=== PATIENT | male | born 1995 | race Caucasian/White ===

== ENCOUNTER 2017-10-18 02:38 | Emergency (ER) | payer OTHER ==
--- NOTE | 2017-10-18 03:06 | ERPHSYRPT ---
- History of Present Illness Time Seen by Provider: 10/18/17 03:01 Source: patient Exam Limitations: no limitations Physician History: Patient is a 22-year-old male who complains of a sudden onset of left forearm pain that began 45 minutes ago and lasted just a few seconds. Immediately after he rubbed his left forearm and the pain went away, he had pain high in his right ear. The right ear pain lasted for a few seconds and has resolved. He then had some minor epigastric pain that lasted briefly along with nausea. This has also resolved. He then felt like his head was heavy so he laid it back on a pillow. He felt dizzy like the room was spinning. His breathing became heavy and difficult. The difficulty in breathing lasted only a few seconds and resolved. On the way to the ER, he had difficulty speaking and had to right when he was wanting to say on a piece of paper. This difficulty has also resolved after lasting only a few seconds. He currently has no complaints at all. He sometimes takes trazodone as a sleep aid. He took trazodone last night but not tonight. Timing/Duration: hour(s) (1), intermittent, resolved prior to arrival, sudden Severity: mild Associated Symptoms: nausea, shortness of breath, headaches Allergies/Adverse Reactions: No Known Drug Allergies Allergy (Verified 10/18/17 03:04) Home Medications: Trazodone HCl 50 mg [Desyrel 50 mg] 50 mg PO HS PRN PRN 10/18/17 [History] Hx Tetanus, Diphtheria Vaccination/Date Given: Yes Hx Influenza Vaccination/Date Given: No Hx Pneumococcal Vaccination/Date Given: No - Review of Systems Constitutional: No Fever, No Chills Eyes: No Symptoms Ears, Nose, & Throat: No Symptoms Respiratory: Dyspnea Cardiac: No Chest Pain, No Edema, No Syncope Abdominal/Gastrointestinal: Abdominal Pain, Nausea Genitourinary Symptoms: No Dysuria Musculoskeletal: No Back Pain, No Neck Pain Skin: No Rash Neurological: Dizziness, Headache Psychological: No Symptoms Endocrine: No Symptoms Hematologic/Lymphatic: No Symptoms Immunological/Allergic: No Symptoms All Other Systems: Reviewed and Negative - Past Medical History Pertinent Past Medical History: Yes Neurological History: No Pertinent History ENT History: No Pertinent History Cardiac History: No Pertinent History Respiratory History: No Pertinent History Endocrine Medical History: No Pertinent History Musculoskeletal History: Other (recurrent ingrown toenail right great toe) GI Medical History: No Pertinent History History: No Pertinent History Psycho-Social History: No Pertinent History Male Reproductive Disorders: No Pertinent History Other Medical History: PT STATES LEFT SIDE OF BRAIN DOES NOT WORK - Past Surgical History Past Surgical History: No Musculoskeletal: Other (excision and removal right great toenail) - Social History Smoking Status: Never smoker Exposure to second hand smoke: Yes Alcohol Use: None Drug Use: none Patient Lives Alone: No Significant Family History: no pertinent family hx - Nursing Vital Signs Nursing Vital Signs: Initial Vital Signs Temperature 98.9 F 10/18/17 02:49 Pulse Rate 64 10/18/17 02:49 Respiratory Rate 16 10/18/17 02:49 Blood Pressure 114/69 10/18/17 02:49 O2 Sat by Pulse Oximetry 99 10/18/17 02:49 Pain Scale Pain Intensity 0 - Physical Exam General Appearance: no apparent distress, alert Eye Exam: PERRL/EOMI, eyes nml inspection, No photophobia Ears, Nose, Throat Exam: normal ENT inspection, TMs normal, pharynx normal, moist mucous membranes Neck Exam: normal inspection, non-tender, supple, full range of motion Respiratory Exam: normal breath sounds, lungs clear, No respiratory distress Cardiovascular Exam: regular rate/rhythm, normal heart sounds, normal peripheral pulses Gastrointestinal/Abdomen Exam: soft, normal bowel sounds, No tenderness, No mass Rectal Exam: not done Back Exam: normal inspection, normal range of motion, No CVA tenderness, No vertebral tenderness Extremity Exam: normal inspection, normal range of motion, pelvis stable Neurologic Exam: alert, oriented x 3, cooperative, 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, normal mood/affect, nml cerebellar function, nml station & gait, sensation nml, No motor deficits, No sensory deficit, No motor weakness, No facial droop, No slurred speech, No aphasia, No dysarthria, No abnormal cerebellar tests, No abnormal 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 machine 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 II-XII Skin Exam: normal color, warm, dry, No rash Lymphatic Exam: No adenopathy SpO2 Interpretation: normal - Course EKG Interpreted by Me: RATE, Sinus Rhythm, NORMAL AXIS, NORMAL INTERVALS, NORMAL QRS, NORMAL ST-T - Radiology Exams Chest X-ray Interpretation: Interpreted by me, Negative Ordered Tests: Active Orders 24 hr Category Date Time Status EKG-ER Only STAT Care 10/18/17 03:08 Active CHEST 2 VIEWS (PA AND LAT) Stat Exams 10/18/17 03:09 Taken CBC W DIFF Stat Lab 10/18/17 03:25 Completed CMP Stat Lab 10/18/17 04:00 Completed TROPONIN Q3H Lab 10/18/17 04:00 Completed TROPONIN Q3H Lab 10/18/17 06:15 Ordered TROPONIN Q3H Lab 10/18/17 09:15 Ordered TROPONIN Q3H Lab 10/18/17 12:15 Ordered TROPONIN Q3H Lab 10/18/17 15:15 Ordered UA W/RFX UR CULTURE Stat Lab 10/18/17 03:08 Uncollected Urine Triage Profile Stat Lab 10/18/17 03:08 Uncollected Medication Summary Discontinued Medications Generic Name Dose Route Start Last Admin Trade Name Freq PRN Reason Stop Dose Admin Sodium Chloride 1,000 mls @ 999 mls/hr 10/18/17 03:08 10/18/17 03:48 Sodium Chloride 0.9% 1000 Ml IV 10/18/17 04:08 999 mls/hr .Q1H1M STA Administration Sodium Chloride Confirm 10/18/17 03:43 Sodium Chloride 0.9% 1000 Ml Administered 10/18/17 03:44 Dose 1,000 mls @ ud .ROUTE .STK-MED ONE Ondansetron HCl 4 mg 10/18/17 03:08 10/18/17 03:48 Zofran 4 Mg/2 Ml Vial IV 10/18/17 03:09 4 mg STAT ONE Administration Ondansetron HCl Confirm 10/18/17 03:43 Zofran 4 Mg/2 Ml Vial Administered 10/18/17 03:44 Dose 4 mg .ROUTE .STK-MED ONE Lab/Rad Data: Laboratory Result Diagrams 10/18/17 03:25 10/18/17 04:00 Laboratory Results 10/18/17 10/18/17 10/18/17 Range/Units 04:00 04:00 03:25 WBC 9.3 (4.0-10.5) K/mm3 RBC 5.65 H (4.1-5.6) M/mm3 Hgb 16.9 (12.5-18.0) gm/dl Hct 50.1 H (42-50) % MCV 88.7 (78-100) fl MCH 29.9 (26-32) pg MCHC 33.7 (32-36) g/dl RDW 12.9 (11.5-14.0) % Plt Count 233 (150-450) K/mm3 MPV 10.2 H (6-9.5) fl Gran % 64.7 (36.0-66.0) % Eos # (Auto) 0.18 (0-0.5) Absolute Lymphs (auto) 2.43 (1.0-4.6) Absolute Monos (auto) 0.66 (0.0-1.3) Lymphocytes % 26.0 (24.0-44.0) % Monocytes % 7.1 (0.0-12.0) % Eosinophils % 1.9 (0.00-5.0) % Basophils % 0.3 (0.0-0.4) % Absolute Granulocytes 6.03 (1.4-6.9) Basophils # 0.03 (0-0.4) Sodium 143 (137-145) mmol/L Potassium 3.6 (3.5-5.1) mmol/L Chloride 104 (98-107) mmol/L Carbon Dioxide 28 (22-30) mmol/L Anion Gap 15.1 H (5-15) MEQ/L BUN 8 L (9-20) mg/dL Creatinine 0.96 (0.66-1.25) mg/dL Estimated GFR > 60.0 ML/MIN Glucose 95 (74-106) mg/dL Calcium 9.5 (8.4-10.2) mg/dL Total Bilirubin 0.40 (0.2-1.3) mg/dL AST 20 (17-59) U/L ALT 24 (0-50) U/L Alkaline Phosphatase 90 (38-126) U/L Troponin I < 0.012 (0.000-0.034) ng/mL Serum Total Protein 7.7 (6.3-8.2) g/dL Albumin 4.5 (3.5-5.0) g/dL - Progress Progress: unchanged Counseled pt/family regarding: lab results, diagnosis, rad results - Departure Time of Disposition: 04:28 Departure Disposition: Home Clinical Impression: Dizziness Condition: Stable Critical Care Time: No Referrals: YOLA JIMENEZ [Primary Care Provider] - Additional Instructions: The brief episodes of arm and head pain have resolved. You brief episode of shortness of breath has resolved. Your dizziness has resolved. All laboratory results were within normal limits. Your chest x-ray was normal. Your EKG was normal. Follow-up with your primary medical doctor on Friday.
[2017-10-18] MEDS ORDERED: Zofran 4 MG/2 ML VIAL IV ONE (03:08)
[2017-10-18] MEDS ORDERED: Sodium Chloride 0.9% 1000 ML 1,000 ML IV STA (03:08)
[2017-10-18] MEDS ORDERED: Sodium Chloride 0.9% 1000 ML 1,000 ML ONE (03:43)
[2017-10-18] MEDS ORDERED: Zofran 4 MG/2 ML VIAL ONE (03:43)
[2017-10-18 03:48] LABS: BASOPHIL % 0.3 % (0.0-0.4); Basophil (Absolute #) 0.03 (0-0.4); Eosinophil % 1.9 % (0.00-5.0); Eosinophil (Absolute #) 0.18 (0-0.5); Granulocyte Absolute (ANC) 6.03 (1.4-6.9); Granulocytes % 64.7 % (36.0-66.0); Hematocrit 50.1 % (42-50); Hemoglobin 16.9 gm/dl (12.5-18.0); Lymphocyte (Absolute #) 2.43 (1.0-4.6); Mean Cell Volume 88.7 fl (78-100); Mean Corpuscular Hemoglobin 29.9 pg (26-32); Mean Corpuscular Hgb Concent. 33.7 g/dl (32-36); Mean Platelet Volume 10.2 fl (6-9.5); Monocyte (Absolute #) 0.66 (0.0-1.3); Monocytes % 7.1 % (0.0-12.0); Platelet Count 233 K/mm3 (150-450); Red Blood Count 5.65 M/mm3 (4.1-5.6); Red Cell Distribution Width 12.9 % (11.5-14.0); White Blood Count 9.3 K/mm3 (4.0-10.5)
[2017-10-18 04:07] LABS: ALBUMIN 4.5 g/dL (3.5-5.0); ALKALINE PHOSPHATASE 90 U/L (38-126); ANION GAP 15.1 MEQ/L (5-15); BLOOD UREA NITROGEN 8 mg/dL (9-20); CHLORIDE 104 mmol/L (98-107); Calcium 9.5 mg/dL (8.4-10.2); Carbon Dioxide 28 mmol/L (22-30); Creatinine 1 0.96 mg/dL (0.66-1.25); Glucose 95 mg/dL (74-106); Potassium 3.6 mmol/L (3.5-5.1); SGOT/AST 20 U/L (17-59); SGPT/ALT 24 U/L (0-50); SODIUM 143 mmol/L (137-145); Total Protein 7.7 g/dL (6.3-8.2)
[2017-10-18 05:00] VITALS: BP 120/56; PULSE 58; O2SAT 100
[2017-10-18 05:10] LABS: Appearance CLEAR (CLEAR); Bilirubin NEGATIVE (NEGATIVE); Blood NEGATIVE Ery/ul (0-5); Glucose NEGATIVE (NEGATIVE); Ketones NEGATIVE (NEGATIVE); Leukocyte Esterase NEGATIVE (NEGATIVE); Nitrite NEGATIVE (NEGATIVE); Protein,Urine Dip NEGATIVE (Negative); Specific Gravity 1.005 (1.005-1.025); Urobilinogen NORMAL mg/dL (0-1)
[2017-10-18 05:23] LABS: Amphetamine,Urine NEGATIVE (NEGATIVE); Barbiturate,Urine NEGATIVE (NEGATIVE); Benzodiazepine,Urine NEGATIVE (NEGATIVE); Cocaine,Urine NEGATIVE (NEGATIVE); Methadone,Urine NEGATIVE (NEGATIVE); Opiate,Urine NEGATIVE (NEGATIVE); PCP,Urine NEGATIVE (NEGATIVE); THC,Urine NEGATIVE (NEGATIVE)
--- NOTE | 2017-10-18 08:56 | XRAY ---
Indication: Short of breath. Comparison: None PA/lateral chest demonstrates normal heart and lungs with a few incidental tiny calcified granulomas. Bony thorax intact with minimal dextroscoliosis.
== END 2017-10-18 04:44 | disposition home or self-care (01) ==
LOC: ED 02:38
DX: R42 Dizziness and giddiness (principal); M79.632 Pain in left forearm
CPT/HCPCS: 36415; 71046; 80053; 80307; 81002; 84484; 85025; 93005; 96360; 96374; 99284; J2405

== ENCOUNTER 2019-03-05 12:29 | Emergency (ER) | payer OTHER ==
[2019-03-05] MEDS ORDERED: PROTONIX 40 MG IV IV ONE ×2 (13:08→13:18)
[2019-03-05] MEDS ORDERED: Sodium Chloride 0.9% 1000 ML 1,000 ML IV STA (13:08)
[2019-03-05] MEDS ORDERED: SUBLIMAZE 100 MCG/2 ML IV ONE (13:08)
[2019-03-05] MEDS ORDERED: Protonix 40MG Tablet PO ONE (13:08)
[2019-03-05] MEDS ORDERED: Protonix 40MG Tablet ONE (13:18)
[2019-03-05] MEDS ORDERED: SUBLIMAZE 100 MCG/2 ML ONE (13:19)
[2019-03-05] MEDS ORDERED: Sodium Chloride 0.9% 1000 ML 1,000 ML ONE (13:19)
[2019-03-05 14:03] LABS: INFLUENZA A NEGATIVE (NEGATIVE); INFLUENZA B NEGATIVE (NEGATIVE); RESPIRATORY SYNCTIAL VIRUS NEGATIVE (Negative)
--- NOTE | 2019-03-05 14:14 | XRAY ---
Indication: Abdomen pain 2 days. Diarrhea. Multiple contiguous axial images obtained through the abdomen and pelvis using 80 cc Isovue 370 contrast only. Comparison: None Lung bases are clear. Heart is not enlarged. Noncontrasted stomach and bowel loops appear nonobstructed. Normal appendix. Minimal scattered colonic fecal debris including rectum. No free fluid/air. Tiny hepatic calcified granuloma. Remaining liver, gallbladder, pancreas, spleen, adrenal glands, kidneys, ureters, bladder, and aorta appear normal in CT appearance and attenuation. No pathologic retroperitoneal lymphadenopathy. Osseous structures intact. Impression: Tiny hepatic calcified granuloma. Otherwise normal CT abdomen/pelvis with contrast exam.
--- NOTE | 2019-03-05 14:15 | XRAY ---
Indication: Abdomen pain. Comparison: October 18, 2017. Portable chest demonstrates new small right mid lung triangular opacity, infiltrate vs atelectasis. Otherwise normal heart, left lung, and bony thorax.
[2019-03-05 14:27] LABS: Absolute Neutrophil Ct (ANC) 3.45 (1.4-6.9); BASOPHIL % 0.6 % (0.0-0.4); Basophil (Absolute #) 0.04 (0-0.4); Eosinophil % 15.1 % (0.00-5.0); Eosinophil (Absolute #) 0.99 (0-0.5); Hematocrit 49.2 % (42-50); Hemoglobin 15.9 gm/dl (12.5-18.0); Lymphocyte (Absolute #) 1.69 (1.0-4.6); Lymphocytes % 25.7 % (24.0-44.0); Mean Cell Volume 93.5 fl (78-100); Mean Corpuscular Hemoglobin 30.2 pg (26-32); Mean Corpuscular Hgb Concent. 32.3 g/dl (32-36); Mean Platelet Volume 9.9 fl (7.5-11.0); Monocytes % 6.1 % (0.0-12.0); Neutrophil % 52.5 % (36.0-66.0); Platelet Count 159 K/mm3 (150-450); Red Blood Count 5.26 M/mm3 (4.1-5.6); Red Cell Distribution Width 13.5 % (11.5-14.0); White Blood Count 6.6 K/mm3 (4.0-10.5)
[2019-03-05 14:32] LABS: ALBUMIN 4.3 g/dL (3.5-5.0); ALKALINE PHOSPHATASE 65 U/L (38-126); AMYLASE 66 U/L (30-110); BLOOD UREA NITROGEN 9 mg/dL (9-20); CHLORIDE 106 mmol/L (98-107); Calcium 9.9 mg/dL (8.4-10.2); Carbon Dioxide 29 mmol/L (22-30); Creatinine 1 0.99 mg/dL (0.66-1.25); Glucose 74 mg/dL (74-106); LIPASE 90 U/L (23-300); Potassium 4.4 mmol/L (3.5-5.1); SGOT/AST 74 U/L (17-59); SGPT/ALT 43 U/L (0-50); SODIUM 142 mmol/L (137-145); Total Protein 7.7 g/dL (6.3-8.2)
[2019-03-05 15:10] LABS: Appearance CLEAR (CLEAR); Bilirubin NEGATIVE (NEGATIVE); Blood NEGATIVE Ery/ul (0-5); Glucose NEGATIVE (NEGATIVE); Ketones NEGATIVE (NEGATIVE); Leukocyte Esterase NEGATIVE (NEGATIVE); Mucus SLIGHT /HPF (NEGATIVE); Nitrite NEGATIVE (NEGATIVE); Protein,Urine Dip NEGATIVE (Negative); Urobilinogen NEGATIVE mg/dL (0-1)
[2019-03-05] MEDS ORDERED: ROCEPHIN 1 Gm-D5w 50 ml Bag** 1 G/50 ML IVPB IV STA (15:49)
[2019-03-05] MEDS ORDERED: ROCEPHIN 1 Gm-D5w 50 ml Bag** 1 G/50 ML IVPB IV ONE (15:54)
--- NOTE | 2019-03-05 15:56 | ERPHSYRPT ---
- History of Present Illness Time Seen by Provider: 03/05/19 13:00 Patient Subjective Stated Complaint: Abdominal pain Triage Nursing Assessment: Patient ambulated into ED and transferred self to bed. Patient A+O X3. Patient's skin pink, warm and dry. Patient complains of abdominal pain in the middle of the abdomen. Patient states the pain is intermittent and currently is a 1/10 but can get to a 8/10. Patient states he did have diarrhea yesterday, but denies diarrhea today. Patient stated he did vomit X 1 today. Abdomen soft and round with BS X 4. Physician History: patient is a 23-year-old male with abdominal pain particularly in the epigastrium he's also had a productive cough producing some yellow sputum this started yesterday he denies any documented fever but has had chills and sweats. She's also had some nausea vomiting and some diarrhea but no change in urination. Timing/Duration: yesterday Quality: cramping Abdominal Pain Onset Location: epigastric Pain Radiation: no radiation Severity of Pain-Max: moderate Severity of Pain-Current: moderate Modifying Factors: Improves With: coughing, vomiting Associated Symptoms: chest pain, diaphoresis, fever/chills, loss of appetite, nausea, vomiting Previous symptoms: no prior history Allergies/Adverse Reactions: No Known Drug Allergies Allergy (Verified 03/05/19 12:40) Hx Tetanus, Diphtheria Vaccination/Date Given: Yes Hx Influenza Vaccination/Date Given: No Hx Pneumococcal Vaccination/Date Given: No Immunizations Up to Date: Yes - Review of Systems Constitutional: Fever, Chills Eyes: No Symptoms Ears, Nose, & Throat: No Symptoms, Nose Congestion, Nose Discharge Respiratory: Cough, Dyspnea Cardiac: No Chest Pain, No Edema, No Syncope Abdominal/Gastrointestinal: Abdominal Pain, Nausea, Vomiting, Diarrhea Genitourinary Symptoms: No Dysuria Musculoskeletal: No Back Pain, No Neck Pain Skin: No Rash Neurological: No Dizziness, No Focal Weakness, No Sensory Changes Psychological: No Symptoms Endocrine: No Symptoms All Other Systems: Reviewed and Negative - Past Medical History Pertinent Past Medical History: Yes Neurological History: No Pertinent History ENT History: No Pertinent History Cardiac History: No Pertinent History Respiratory History: No Pertinent History Endocrine Medical History: No Pertinent History Musculoskeletal History: Other GI Medical History: No Pertinent History History: No Pertinent History Psycho-Social History: Depression Male Reproductive Disorders: No Pertinent History Other Medical History: PT STATES LEFT SIDE OF BRAIN DOES NOT WORK - Past Surgical History Past Surgical History: No Neuro Surgical History: No Pertinent History Cardiac: No Pertinent History Respiratory: No Pertinent History Gastrointestinal: No Pertinent History Genitourinary: No Pertinent History Musculoskeletal: No Pertinent History Male Surgical History: No Pertinent History - Social History Smoking Status: Current every day smoker How long have you smoked: years Exposure to second hand smoke: No Alcohol Use: None Drug Use: marijuana Patient Lives Alone: No Significant Family History: no pertinent family hx - Nursing Vital Signs Nursing Vital Signs: Initial Vital Signs Temperature 98.8 F 03/05/19 12:41 Pulse Rate 92 H 03/05/19 12:41 Respiratory Rate 18 03/05/19 12:41 Blood Pressure 116/77 03/05/19 12:41 O2 Sat by Pulse Oximetry 100 03/05/19 12:41 Pain Scale Pain Intensity 0 - Physical Exam General Appearance: mild distress, alert Eye Exam: PERRL/EOMI, eyes nml inspection Ears, Nose, Throat Exam: normal ENT inspection, pharynx normal, moist mucous membranes Neck Exam: normal inspection, non-tender, supple, full range of motion Respiratory Exam: lungs clear, diminished breath sounds, crackles/rales, rhonchi , No respiratory distress Cardiovascular Exam: regular rate/rhythm, normal heart sounds Gastrointestinal/Abdomen Exam: tenderness (epigastric area), No mass, No guarding (and), No rebound ( here i) Back Exam: normal inspection, normal range of motion, No CVA tenderness, No vertebral tenderness Extremity Exam: normal inspection, normal range of motion, pelvis stable Neurologic Exam: alert, oriented x 3, cooperative, normal mood/affect, nml cerebellar function, sensation nml, No motor deficits Skin Exam: normal color, warm, dry SpO2 Interpretation: normal SpO2: 100 O2 Delivery: Room Air - Course Nursing assessment & vital signs reviewed: Yes - Radiology Exams Chest X-ray Interpretation: Reviewed by me (he was), Pneumonia - CT Exams Abdomen/Pelvis CT Interpretation: Negative - Radiology Ultrasound Exam Gallbladder Ultrasound: negative Ordered Tests: Active Orders 24 hr Category Date Time Status IV Insertion STAT Care 03/05/19 13:08 Active ABDOMEN AND PELVIS W CONTRAST [CT] Stat Exams 03/05/19 13:09 Completed CHEST 1 VIEW (PORTABLE) Stat Exams 03/05/19 13:09 Completed Ultrasound Gallbladder [GALLBLADDER] [US] Stat Exams 03/05/19 15:32 Taken AMYLASE Stat Lab 03/05/19 13:45 Completed CBC W DIFF Stat Lab 03/05/19 13:45 Completed CMP Stat Lab 03/05/19 13:45 Completed LIPASE Stat Lab 03/05/19 13:45 Completed Lactic Acid Stat Lab 03/05/19 13:28 Completed UA W/RFX UR CULTURE Stat Lab 03/05/19 14:56 Completed Medication Summary Generic Name Dose Route Start Last Admin Trade Name Freq PRN Reason Stop Dose Admin Ceftriaxone Sodium/Dextrose 1 g in 50 mls @ 100 mls/hr 03/05/19 15:49 Rocephin 1 Gm-D5w 50 Ml Bag IV 03/05/19 16:18 STAT STA Discontinued Medications Generic Name Dose Route Start Last Admin Trade Name Freq PRN Reason Stop Dose Admin Fentanyl Citrate 50 mcg 03/05/19 13:08 03/05/19 13:21 Sublimaze 100 Mcg/2 Ml IV 03/05/19 13:09 50 mcg STAT ONE Administration Fentanyl Citrate Confirm 03/05/19 13:19 Sublimaze 100 Mcg/2 Ml Administered 03/05/19 13:20 Dose 100 mcg .ROUTE .STK-MED ONE Sodium Chloride 1,000 mls @ 999 mls/hr 03/05/19 13:08 03/05/19 14:46 Sodium Chloride 0.9% 1000 Ml IV 03/05/19 14:08 Infused .Q1H1M STA Infusion Sodium Chloride Confirm 03/05/19 13:19 Sodium Chloride 0.9% 1000 Ml Administered 03/05/19 13:20 Dose 1,000 mls @ ud .ROUTE .STK-MED ONE Pantoprazole Sodium 40 mg 03/05/19 13:08 03/05/19 13:22 Protonix 40mg Tablet PO 03/05/19 13:09 Not Given STAT ONE Pantoprazole Sodium 40 mg 03/05/19 13:08 03/05/19 13:20 Protonix 40 Mg Iv IV 03/05/19 13:09 40 mg STAT ONE Administration Pantoprazole Sodium Confirm 03/05/19 13:18 Protonix 40 Mg Iv Administered 01/03/20 13:19 Dose 40 mg IV .STK-MED ONE Pantoprazole Sodium Confirm 03/05/19 13:18 Protonix 40mg Tablet Administered 03/05/19 13:19 Dose 40 mg .ROUTE .STK-MED ONE Lab/Rad Data: Laboratory Result Diagrams 03/05/19 13:45 03/05/19 13:45 Laboratory Results 03/05/19 03/05/19 03/05/19 Range/Units 14:56 13:45 13:45 WBC 6.6 (4.0-10.5) K/mm3 RBC 5.26 (4.1-5.6) M/mm3 Hgb 15.9 (12.5-18.0) gm/dl Hct 49.2 (42-50) % MCV 93.5 (78-100) fl MCH 30.2 (26-32) pg MCHC 32.3 (32-36) g/dl RDW 13.5 (11.5-14.0) % Plt Count 159 (150-450) K/mm3 MPV 9.9 H (7.5-11.0) fl Gran % 52.5 (36.0-66.0) % Eos # (Auto) 0.99 H (0-0.5) Absolute Lymphs (auto) 1.69 (1.0-4.6) Absolute Monos (auto) 0.40 (0.0-1.3) Lymphocytes % 25.7 (24.0-44.0) % Monocytes % 6.1 (0.0-12.0) % Eosinophils % 15.1 H (0.00-5.0) % Basophils % 0.6 (0.0-0.4) % Absolute Granulocytes 3.45 (1.4-6.9) Basophils # 0.04 (0-0.4) Sodium 142 (137-145) mmol/L Potassium 4.4 (3.5-5.1) mmol/L Chloride 106 (98-107) mmol/L Carbon Dioxide 29 (22-30) mmol/L Anion Gap 12.0 (5-15) MEQ/L BUN 9 (9-20) mg/dL Creatinine 0.99 (0.66-1.25) mg/dL Estimated GFR > 60.0 ML/MIN Glucose 74 (74-106) mg/dL Lactic Acid (0.4-2.0) Calcium 9.9 (8.4-10.2) mg/dL Total Bilirubin 0.60 (0.2-1.3) mg/dL AST 74 H (17-59) U/L ALT 43 (0-50) U/L Alkaline Phosphatase 65 (38-126) U/L Serum Total Protein 7.7 (6.3-8.2) g/dL Albumin 4.3 (3.5-5.0) g/dL Amylase 66 (30-110) U/L Lipase 90 (23-300) U/L Urine Color YELLOW (YELLOW) Urine Appearance CLEAR (CLEAR) Urine pH 6.0 (5-6) Ur Specific [place] 1.030 (1.005-1.025) Urine Protein NEGATIVE (Negative) Urine Ketones NEGATIVE (NEGATIVE) Urine Blood NEGATIVE (0-5) Addi/ul Urine Nitrite NEGATIVE (NEGATIVE) Urine Bilirubin NEGATIVE (NEGATIVE) Urine Urobilinogen NEGATIVE (0-1) mg/dL Ur Leukocyte Esterase NEGATIVE (NEGATIVE) Urine WBC (Auto) NONE (0-5) /HPF Urine RBC (Auto) NONE (0-2) /HPF U Epithel Cells (Auto) NONE (FEW) /HPF Urine Bacteria (Auto) NONE (NEGATIVE) /HPF Urine Mucus (Auto) SLIGHT (NEGATIVE) /HPF Urine Culture Reflexed NO (NO) Urine Glucose NEGATIVE (NEGATIVE) mg/dL Influenza Type A Ag (NEGATIVE) Influenza Type B Ag (NEGATIVE) RSV (PCR) (Negative) 03/05/19 03/05/19 Range/Units 13:28 13:15 WBC (4.0-10.5) K/mm3 RBC (4.1-5.6) M/mm3 Hgb (12.5-18.0) gm/dl Hct (42-50) % MCV (78-100) fl MCH (26-32) pg MCHC (32-36) g/dl RDW (11.5-14.0) % Plt Count (150-450) K/mm3 MPV (7.5-11.0) fl Gran % (36.0-66.0) % Eos # (Auto) (0-0.5) Absolute Lymphs (auto) (1.0-4.6) Absolute Monos (auto) (0.0-1.3) Lymphocytes % (24.0-44.0) % Monocytes % (0.0-12.0) % Eosinophils % (0.00-5.0) % Basophils % (0.0-0.4) % Absolute Granulocytes (1.4-6.9) Basophils # (0-0.4) Sodium (137-145) mmol/L Potassium (3.5-5.1) mmol/L Chloride (98-107) mmol/L Carbon Dioxide (22-30) mmol/L Anion Gap (5-15) MEQ/L BUN (9-20) mg/dL Creatinine (0.66-1.25) mg/dL Estimated GFR ML/MIN Glucose (74-106) mg/dL Lactic Acid 0.9 (0.4-2.0) Calcium (8.4-10.2) mg/dL Total Bilirubin (0.2-1.3) mg/dL AST (17-59) U/L ALT (0-50) U/L Alkaline Phosphatase (38-126) U/L Serum Total Protein (6.3-8.2) g/dL Albumin (3.5-5.0) g/dL Amylase (30-110) U/L Lipase (23-300) U/L Urine Color (YELLOW) Urine Appearance (CLEAR) Urine pH (5-6) Ur Specific [place] (1.005-1.025) Urine Protein (Negative) Urine Ketones (NEGATIVE) Urine Blood (0-5) Addi/ul Urine Nitrite (NEGATIVE) Urine Bilirubin (NEGATIVE) Urine Urobilinogen (0-1) mg/dL Ur Leukocyte Esterase (NEGATIVE) Urine WBC (Auto) (0-5) /HPF Urine RBC (Auto) (0-2) /HPF U Epithel Cells (Auto) (FEW) /HPF Urine Bacteria (Auto) (NEGATIVE) /HPF Urine Mucus (Auto) (NEGATIVE) /HPF Urine Culture Reflexed (NO) Urine Glucose (NEGATIVE) mg/dL Influenza Type A Ag NEGATIVE (NEGATIVE) Influenza Type B Ag NEGATIVE (NEGATIVE) RSV (PCR) NEGATIVE (Negative) - Progress Progress: improved Counseled pt/family regarding: lab results, need for follow-up - Departure Departure Disposition: Home Clinical Impression: Pneumonia Condition: Stable Critical Care Time: No Referrals: YOLA JIMENEZ [Primary Care Provider] - Prescriptions: Hydrocodone/APAP 5-325 Tab^^^ [[place] 5-325 Tablet^^^] 1 tab PO Q6HPRN PRN #10 tablet MDD 6 PRN Reason: Pain Cefdinir [Omnicef] 300 mg PO BID 10 Days #20 capsule Ondansetron HCl [Zofran] 4 mg PO TID PRN #10 tablet PRN Reason: Nausea/Vomiting
[2019-03-05 16:24] VITALS: BP 105/71; PULSE 81; O2SAT 98
--- NOTE | 2019-03-05 16:40 | XRAY ---
Indication: Pain. Two-dimensional gallbladder sonogram performed. Comparison: None Visualized portions of the gallbladder, liver, pancreas, and right kidney appear sonographically normal. Common bile duct measures 3.2 mm. Right kidney measures 11.4 cm in length. No ascites. Impression: Normal gallbladder sonogram.
== END 2019-03-05 16:20 | disposition home or self-care (01) ==
LOC: ED 12:29
DX: J18.9 Pneumonia, unspecified organism (principal); R10.13 Epigastric pain
CPT/HCPCS: 36000; 36415; 71045; 74177; 76705; 80053; 81001; 82150; 83605; 83690; 85025; 87631; 96360; 96365; 96374; 96375; 99284; J0696; J3010; A9270-GY

== ENCOUNTER 2019-10-05 22:29 | Emergency (ER) | payer OTHER ==
[2019-10-05 23:24] LABS: Absolute Neutrophil Ct (ANC) 5.13 (1.4-6.9); BASOPHIL % 0.5 % (0.0-0.4); Basophil (Absolute #) 0.04 (0-0.4); Eosinophil % 4.4 % (0.00-5.0); Eosinophil (Absolute #) 0.37 (0-0.5); Hematocrit 49.7 % (42-50); Hemoglobin 16.1 gm/dl (12.5-18.0); Lymphocyte (Absolute #) 2.29 (1.0-4.6); Lymphocytes % 27.3 % (24.0-44.0); Mean Cell Volume 96.3 fl (78-100); Mean Corpuscular Hemoglobin 31.2 pg (26-32); Mean Corpuscular Hgb Concent. 32.4 g/dl (32-36); Mean Platelet Volume 9.7 fl (7.5-11.0); Monocyte (Absolute #) 0.56 (0.0-1.3); Monocytes % 6.7 % (0.0-12.0); Neutrophil % 61.1 % (36.0-66.0); Platelet Count 183 K/mm3 (150-450); Red Blood Count 5.16 M/mm3 (4.1-5.6); Red Cell Distribution Width 12.9 % (11.5-14.0); White Blood Count 8.4 K/mm3 (4.0-10.5)
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
[2019-10-05 23:29] LABS: Appearance CLEAR (CLEAR); Bilirubin NEGATIVE (NEGATIVE); Blood SMALL Ery/ul (0-5); Glucose NEGATIVE (NEGATIVE); Ketones NEGATIVE (NEGATIVE); Leukocyte Esterase NEGATIVE (NEGATIVE); Nitrite NEGATIVE (NEGATIVE); Protein,Urine Dip NEGATIVE (Negative); RBC 0-2 /HPF (0-2); Specific Gravity 1.006 (1.005-1.025); Urobilinogen NEGATIVE mg/dL (0-1)
[2019-10-05 23:36] LABS: ALBUMIN 4.7 g/dL (3.5-5.0); ALKALINE PHOSPHATASE 71 U/L (38-126); BLOOD UREA NITROGEN 11 mg/dL (9-20); CHLORIDE 103 mmol/L (98-107); Carbon Dioxide 28 mmol/L (22-30); Creatinine 1 1.01 mg/dL (0.66-1.25); Glucose 86 mg/dL (74-106); Potassium 3.9 mmol/L (3.5-5.1); SGOT/AST 28 U/L (17-59); SGPT/ALT 19 U/L (0-50); SODIUM 141 mmol/L (137-145); Total Protein 8.1 g/dL (6.3-8.2)
[2019-10-05 23:38] LABS: ACETAMINOPHEN < 10 ug/ml (10-30); ETHYL ALCOHOL < 10 mg/dL (0-10); SALICYLATE < 1.0 mg/dL (2-20)
[2019-10-05 23:42] LABS: Amphetamine,Urine NEGATIVE (NEGATIVE); Barbiturate,Urine NEGATIVE (NEGATIVE); Benzodiazepine,Urine NEGATIVE (NEGATIVE); Cocaine,Urine NEGATIVE (NEGATIVE); Methadone,Urine NEGATIVE (NEGATIVE); Opiate,Urine NEGATIVE (NEGATIVE); PCP,Urine NEGATIVE (NEGATIVE); THC,Urine POSITIVE (NEGATIVE)
[2019-10-06 03:21] VITALS: BP 111/72; PULSE 61; O2SAT 100
== END 2019-10-06 03:00 | disposition home or self-care (01) ==
LOC: ED 22:29
DX: Z63.79 Other stressful life events affecting family and household (principal)
CPT/HCPCS: 36415; 80053; 80307; 81001; 85025; 90791; 93005; 99284; G0480; Q3014

== ENCOUNTER 2020-07-05 20:29 | Emergency (ER) | payer OTHER ==
[2020-07-05 20:59] LABS: Appearance CLEAR (CLEAR); Bilirubin NEGATIVE (NEGATIVE); Blood SMALL Ery/ul (0-5); Glucose NEGATIVE (NEGATIVE); Ketones NEGATIVE (NEGATIVE); Leukocyte Esterase NEGATIVE (NEGATIVE); Mucus SLIGHT /HPF (NEGATIVE); Nitrite NEGATIVE (NEGATIVE); Protein,Urine Dip NEGATIVE (Negative); Specific Gravity 1.005 (1.005-1.025); Urobilinogen NEGATIVE mg/dL (0-1)
[2020-07-05 21:13] LABS: Amphetamine,Urine NEGATIVE (NEGATIVE); Barbiturate,Urine NEGATIVE (NEGATIVE); Benzodiazepine,Urine NEGATIVE (NEGATIVE); Cocaine,Urine NEGATIVE (NEGATIVE); Methadone,Urine NEGATIVE (NEGATIVE); Opiate,Urine NEGATIVE (NEGATIVE); PCP,Urine NEGATIVE (NEGATIVE); THC,Urine POSITIVE (NEGATIVE)
[2020-07-05 21:20] LABS: Bacteria NONE SEEN /HPF (NEGATIVE)
[2020-07-05 21:22] LABS: Absolute Neutrophil Ct (ANC) 8.11 (1.4-6.9); BASOPHIL % 0.4 % (0.0-0.4); Basophil (Absolute #) 0.05 (0-0.4); Eosinophil % 2.1 % (0.00-5.0); Eosinophil (Absolute #) 0.24 (0-0.5); Hematocrit 51.6 % (42-50); Hemoglobin 16.9 gm/dl (12.5-18.0); Lymphocyte (Absolute #) 2.39 (1.0-4.6); Lymphocytes % 20.9 % (24.0-44.0); Mean Cell Volume 93.1 fl (78-100); Mean Corpuscular Hemoglobin 30.5 pg (26-32); Mean Corpuscular Hgb Concent. 32.8 g/dl (32-36); Mean Platelet Volume 9.6 fl (7.5-11.0); Monocyte (Absolute #) 0.66 (0.0-1.3); Monocytes % 5.8 % (0.0-12.0); Neutrophil % 70.8 % (36.0-66.0); Platelet Count 260 K/mm3 (150-450); Red Blood Count 5.54 M/mm3 (4.1-5.6); Red Cell Distribution Width 12.6 % (11.5-14.0); White Blood Count 11.5 K/mm3 (4.0-10.5)
[2020-07-05 21:36] LABS: ACETAMINOPHEN < 10 ug/ml (10-30); ALKALINE PHOSPHATASE 75 U/L (38-126); ANION GAP 17.4 MEQ/L (5-15); BLOOD UREA NITROGEN 10 mg/dL (9-20); CHLORIDE 102 mmol/L (98-107); Calcium 9.7 mg/dL (8.4-10.2); Carbon Dioxide 28 mmol/L (22-30); Creatinine 1 1.14 mg/dL (0.66-1.25); EST GLOMERULAR FILTRATION RATE > 60.0 ML/MIN; ETHYL ALCOHOL 81 mg/dL (0-10); Glucose 95 mg/dL (74-106); Potassium 3.7 mmol/L (3.5-5.1); SALICYLATE < 1.0 mg/dL (2-20); SGOT/AST 34 U/L (17-59); SGPT/ALT 24 U/L (0-50); SODIUM 143 mmol/L (137-145); Total Protein 8.6 g/dL (6.3-8.2)
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
[2020-07-05 23:11] LABS: COVID AG -BINAX NOW RAPID TEST NEGATIVE (NEGATIVE)
[2020-07-06 00:33] VITALS: BP 130/73; PULSE 78
[2020-07-06 06:51] VITALS: O2SAT 97
== END 2020-07-06 01:05 | disposition short-term general hospital (02) ==
LOC: ED 20:29
DX: R45.851 Suicidal ideations (principal); T14.91XA Suicide attempt, initial encounter; F32.9 Major depressive disorder, single episode, unspecified; Z72.0 Tobacco use
CPT/HCPCS: 36415; 80053; 80307; 81001; 85025; 93005; 99000; 99284; G0480

== ENCOUNTER 2022-11-10 23:32 | Emergency (ER) | payer OTHER ==
[2022-11-11 00:42] VITALS: TEMP 97.2
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
[2022-11-11] MEDS ORDERED: TORAdol 30 mg Injection IM ONE (01:59)
[2022-11-11] MEDS ORDERED: TORAdol 30 mg Injection ONE (02:04)
[2022-11-11 03:03] VITALS: RESP 16; O2SAT 98
--- NOTE | 2022-11-11 03:25 | XRAY ---
CLINICAL HISTORY:pain at ORIF hip site COMPARISON:04/30/2022. TECHNIQUE:Thin axial slices of left hip were obtained. Coronal and sagittal reconstructive images were also obtained. FINDINGS: Fracture neck left femur with orthopedic screw fixation noted. The fracture edges show callus. No fusion. No hardware malfunction. Visualized pelvic bones appear normal with no evidence of fracture. Both hip joint spaces are maintained with no joint effusion is seen. The visualized muscles appears normal. No soft tissue fluid collection is seen around the hip joint. The acetabulum appears normal. IMPRESSION: 1. Fracture neck left femur with orthopedic screw fixation. 2. Findings are similar with CR Electronically Signed by: Jackie Jim MD. (11/11/2022 02:25:13 [employer] EXAMINER)
[2022-11-11 04:11] VITALS: BP 106/55; PULSE 74
== END 2022-11-11 04:30 | disposition home or self-care (01) ==
LOC: ED 23:32
DX: M25.552 Pain in left hip (principal); X50.9XXA Other and unspecified overexertion or strenuous movements or postures, initial encounter; Z87.81 Personal history of (healed) traumatic fracture; Z28.310 Unvaccinated for COVID-19; Z72.0 Tobacco use
CPT/HCPCS: 73700; 96372; 99283; J1885

== ENCOUNTER 2023-09-14 15:35 | Emergency (ER) | payer OTHER ==
[2023-09-14 16:11] VITALS: TEMP 98
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
[2023-09-14] MEDS ORDERED: Zithromax 250 MG TABLET ONE (17:06)
[2023-09-14] MEDS: Zithromax 250 MG TABLET PO ONE (17:07)
[2023-09-14 17:17] VITALS: BP 106/55; PULSE 68; RESP 16; O2SAT 97
== END 2023-09-14 17:17 | disposition home or self-care (01) ==
LOC: ED 15:35
DX: H66.91 Otitis media, unspecified, right ear (principal); J02.9 Acute pharyngitis, unspecified; R42 Dizziness and giddiness; R19.7 Diarrhea, unspecified; Z72.0 Tobacco use; Z59.9 Problem related to housing and economic circumstances, unspecified; Z59.19 Other inadequate housing; Z59.12 Inadequate housing utilities; Z59.82 Transportation insecurity; Z59.41 Food insecurity
CPT/HCPCS: 99282; A9270-GY

== ENCOUNTER 2024-03-30 16:32 | Emergency (ER) | payer OTHER ==
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
[2024-03-30 17:27] VITALS: BP 121/76; PULSE 64; RESP 17; TEMP 97.8; O2SAT 98
[2024-03-30] MEDS ORDERED: AMOXIL 500 MG ONE (17:57)
[2024-03-30] MEDS: AMOXIL 500 MG PO ONE (17:59)
== END 2024-03-30 18:09 | disposition home or self-care (01) ==
LOC: ED 16:32
DX: S02.5XXA Fracture of tooth (traumatic), initial encounter for closed fracture (principal); K02.9 Dental caries, unspecified; K04.7 Periapical abscess without sinus; K08.89 Other specified disorders of teeth and supporting structures; Z79.899 Other long term (current) drug therapy; Z72.0 Tobacco use; Z59.819 Housing instability, housed unspecified; Z59.12 Inadequate housing utilities; Z59.41 Food insecurity; Z59.82 Transportation insecurity; Z58.89 Other problems related to physical environment
CPT/HCPCS: 99281; 99283; A9270-GY